=== PATIENT | female | born 1990 | race Caucasian/White ===

== ENCOUNTER 2020-01-26 18:48 | Outpatient (CLI) | payer OTHER | END 2020-01-26 18:49 | disposition EMS.NT | LOC: EMS 18:48 | PROVIDERS: ATTEND Surgery | DX: R56.9 Unspecified convulsions (principal) ==

== ENCOUNTER 2020-01-26 19:43 | Emergency (ER) | payer OTHER ==
--- NOTE | 2020-01-26 20:07 | ED Physician Documentation ---
PD HPI SEIZURE - Stated complaint Stated Complaint: POSSIBLE SZ - Chief complaint Chief Complaint: Neuro - History obtained from History obtained from: Patient - Additional information Additional information: 29-year-old woman with history of anxiety and depression presents after a seizure versus syncopal episode. She was in her usual state of health, had taken a Xanax at approximately noon. They are watching a football game, her went out to 10 to the [facility] and found her in the kitchen on her back shaking and foaming at the mouth. After a couple minutes she started to come out of it but there was a couple of minutes of what sounds like a postictal period. Now feels normal. Denies headaches or history of seizures. Uses alcohol moderately. No withdrawal symptoms. Review of Systems Ten Systems: 10 systems reviewed and negative Constitutional: reports: Reviewed and negative Nose: reports: Reviewed and negative Throat: reports: Reviewed and negative Cardiac: reports: Reviewed and negative Respiratory: reports: Reviewed and negative PD PAST MEDICAL HISTORY - Allergies Allergies/Adverse Reactions: Allergies Allergy/AdvReac Type Severity Reaction Status Date / Time No Known Drug Allergies Allergy Verified 01/26/20 19:52 PD ED PE NORMAL - Vitals Vital signs reviewed: Yes - General General: Alert and oriented X 3, No acute distress - HEENT HEENT: PERRL, EOMI - Neck Neck: Supple, no meningeal sign, No bony TTP - Cardiac Cardiac: RRR, No murmur - Respiratory Respiratory: No respiratory distress, Clear bilaterally - Abdomen Abdomen: Normal bowel sounds, Soft, Non tender - Back Back: No CVA TTP, No spinal TTP - Derm Derm: Normal color, Warm and dry - Extremities Extremities: No edema, No calf tenderness / cord - Neuro Neuro: Alert and oriented X 3, No motor deficit, No sensory deficit, Normal speech Eye Opening: Spontaneous Motor: Obeys Commands Verbal: Oriented GCS Score: 15 - Psych Psych: Normal mood, Normal affect Results - Vitals Vitals: Vital Signs - 24 hr 01/26/20 01/26/20 19:52 21:18 Temperature 36.9 C 36.8 C Heart Rate 100 85 Respiratory 16 16 Rate Blood Pressure 126/89 H 122/65 O2 Saturation 100 100 Oxygen O2 Source Room air - EKG (time done) 2010 Rate: Rate (enter#) (70) Rhythm: NSR [place]: Normal Intervals: Normal MS. No: Prolonged QT, Wide QRS QRS: Normal - Labs Labs: Laboratory Tests 01/26/20 01/26/20 01/26/20 20:16 20:16 20:16 WBC 3.6 L RBC 3.94 L Hgb 14.1 Hct 39.0 MCV 99.0 MCH 35.8 H MCHC 36.2 H RDW 11.6 L Plt Count 158 MPV 9.2 Neut # (Auto) 2.9 Lymph # (Auto) 0.3 L [place] # (Auto) 0.3 Eos # (Auto) 0.1 Baso # (Auto) 0.1 Absolute Nucleated RBC 0.00 Nucleated RBC % 0.0 Sodium 136 Potassium 3.7 Chloride 99 L Carbon Dioxide 25 Anion Gap 12.0 BUN 5 L Creatinine 0.7 Estimated GFR (MDRD) 100 Glucose 127 H Calcium 9.7 Total Bilirubin 1.4 H AST 303 H ALT 159 H Alkaline Phosphatase 102 Total Protein 7.5 Albumin 4.9 Globulin 2.6 Albumin/Globulin Ratio 1.9 Lipase 32 TSH 5.77 H Prolactin 34.85 Ethyl Alcohol < 5.0 PD MEDICAL DECISION MAKING - ED course ED course: 29-year-old woman with history sounds most consistent with a new onset seizure. Liver enzymes were concerning for some alcoholism, she really said she did not drink that much but did quit drinking hard alcohol a couple of weeks ago. This time and would not be appropriate for alcohol withdrawal seizure. Advised to decrease her alcohol use significantly either way. Prolactin level was slightly elevated which is suggestive of seizure. EKG and CT of the head were normal. Discussed need for follow-up and no driving. Departure - Departure Disposition: 01 Home, Self Care Clinical Impression: New onset seizure Condition: Good Record reviewed to determine appropriate education?: Yes Instructions: ED Seizure New Onset Unk Cause Comments: As discussed, per [place] law you cannot drive for 6 months after an episode like this until cleared by a neurologist or 6 months has passed. Also do not do other activities where if it were to be a recurrent phenomenon you would be in danger such as swimming, climbing ladders etc. You were seen today for an episode that is concerning for seizure. We did a CAT scan of your head that was normal. Blood work shows some liver and other issues that may be related to alcohol use. Try to stabilize your alcohol use at no more than 2 drinks a day. Follow-up with your doctor, let him or her know that your prolactin level was also high at 34.85 which is also somewhat suggestive that this is a seizure. Your physician may want to refer you to a neurologist. Discharge Date/Time: 01/26/20 21:19
[2020-01-26] MEDS ORDERED: ONDANSETRON 4 MG/2 ML VIAL IVP STA (20:20)
[2020-01-26 20:24] LABS: BASOPHILS # (AUTO) 0.1 10^3/uL (0.0-0.1); BASOPHILS % (AUTO) 1.7 %; EOSINOPHILS # (AUTO) 0.1 10^3/uL (0.0-0.7); EOSINOPHILS % (AUTO) 2.5 %; HGB - HEMOGLOBIN 14.1 g/dL (12.0-16.0); LYMPHOCYTES # (AUTO) 0.3 10^3/uL (1.5-3.5); LYMPHOCYTES % (AUTO) 8.6 %; MEAN CORPUSCULAR HEMOGLOBIN 35.8 pg (27.0-31.0); MEAN CORPUSCULAR HGB CONC 36.2 g/dL (32.0-36.0); MEAN PLATELET VOLUME 9.2 fL (7.9-10.8); MONOCYTES # (AUTO) 0.3 10^3/uL (0.0-1.0); MONOCYTES % (AUTO) 6.9 %; NEUTROPHILS # (AUTO) 2.9 10^3/uL (1.5-6.6); PLT - PLATELET COUNT 158 10^3/uL (130-450); RED BLOOD COUNT 3.94 10^6/uL (4.20-5.40); RED CELL DISTRIBUTION WIDTH 11.6 % (12.0-15.0); WHITE BLOOD COUNT 3.6 x10^3/uL (4.8-10.8)
[2020-01-26] MEDS ORDERED: ONDANSETRON ODT 4 MG TABLET TL STA (20:24)
[2020-01-26 20:35] LABS: ALBUMIN 4.9 g/dL (3.2-5.5); ALBUMIN/GLOBULIN RATIO 1.9 (1.0-2.2); ALKALINE PHOSPHATASE 102 IU/L (42-121); ALT ALANINE AMINOTRANSFERASE 159 IU/L (10-60); AST ASPARTATE AMINOTRANSFERASE 303 IU/L (10-42); BILIRUBIN,TOTAL 1.4 mg/dL (0.2-1.0); BUN - BLOOD UREA NITROGEN 5 mg/dL (6-20); CALCIUM 9.7 mg/dL (8.5-10.3); CARBON DIOXIDE - CO2 25 mmol/L (21-32); CHLORIDE 99 mmol/L (101-111); CREATININE 0.7 mg/dL (0.4-1.0); GLUCOSE 127 mg/dL (70-100); LIPASE 32 U/L (22-51); SODIUM 136 mmol/L (135-145); TOTAL PROTEIN 7.5 g/dL (6.7-8.2)
[2020-01-26 20:51] LABS: THYROID STIMULATING HORMONE 5.77 uIU/mL (0.34-5.60)
[2020-01-26 20:57] LABS: PROLACTIN 34.85 ng/mL
--- NOTE | 2020-01-26 21:01 | CT Report ---
PROCEDURE: HEAD WO INDICATIONS: poss seizure TECHNIQUE: Noncontrast 4.5 mm thick angled axial sections acquired from the foramen magnum to the vertex. For r adiation dose reduction, the following was used: automated exposure control, adjustment of mA and/or kV according to patient size. COMPARISON: None. FINDINGS: Image quality: Excellent. CSF spaces: Basal cisterns are patent. No extra-axial fluid collections. Ventricles are normal in size and shape. Brain: No midline shift. No intracranial masses or hemorrhage. Grimaldo-white matter interface is norm al. Skull and face: Calvarium and visualized facial bones are intact, without suspicious lesions. Sinuses: Visualized sinuses and mastoids are clear. IMPRESSION: 1. No CT evidence of acute intracranial process. Reviewed by: Sanjuana Beltran MD on 01/26/2020 9:00 PM PDT Approved by: Sanjuana Beltran MD on 01/26/2020 9:00 PM PDT Station ID: [id number]
[2020-01-26 21:19] VITALS: BP 122/65
== END 2020-01-26 21:19 | disposition home or self-care (01) ==
LOC: ED 19:43
DX: R56.9 Unspecified convulsions (principal); E03.9 Hypothyroidism, unspecified
CPT/HCPCS: 36415; 70450; 80320; 83690; 84146; 93005; 99284; Q0162; 80053; 84443; 85025

== ENCOUNTER 2020-01-26 22:51 | Outpatient (CLI) | payer OTHER | END 2020-01-26 22:52 | disposition critical access hospital (66) | LOC: EMS 22:51 | PROVIDERS: ATTEND Surgery | DX: R56.9 Unspecified convulsions (principal) | CPT/HCPCS: A0425; A0427 ==

== ENCOUNTER 2020-01-26 23:19 | Emergency (ER) | payer OTHER ==
--- NOTE | 2020-01-26 23:32 | ED Physician Documentation ---
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) Witnessed: Witnessed Number of seizures: Single ((although this is the second seizure tonight)), Lasted minutes Description of seizure activity: Generalized, Tonic clonic Injury during seizure: Fell Pain level now: 3 (generalized headache) Associated symptoms: None History of seizures: Other (second seizure tonight but no prior seizures) Contributing factors: No: EtOH withdrawal (denies), Benzo withdrawal Similar symptoms before: Has not had sx before Recently seen: Emergency Dept - Additional information Additional information: T+R from this ED few hours ago for new-onset single GTC seizure. unremarkable w/u that included blood tests and CTH, EKG. d/c without rx. Patient and s.o. were home for approximately 5 minutes when s.o. witnessed patient walking in kitchen, suddenly falling to ground and having full-body stiffening followed by rhythmic, coordinated limb jerking movements. She was unresponsive and her seizure-like activity lasted approximately 3-5 minutes followed by post-ictal phase lasting approximately 10-15 minutes (drowsy, then awake but confused (forgetting things like her dog's name), but baseline mentation by the time of ED arrival) Review of Systems Constitutional: denies: Fever, Chills, Sweats Cardiac: reports: Reviewed and negative Respiratory: reports: Reviewed and negative GI: reports: Nausea. denies: Abdominal Pain, Vomiting Musculoskeletal: reports: Reviewed and negative. denies: Neck pain, Back pain Neurologic: reports: Seizure. denies: Generalized weakness, Focal weakness, Numbness, Headache, Head injury PD PAST MEDICAL HISTORY - Past Medical History Cardiovascular: None Respiratory: None Neuro: None Endocrine/Autoimmune: HyPOthyroidism GI: None RES HABILITATION ASSISTANT: None : None HEENT: None Psych: Depression, Anxiety Musculoskeletal: None Derm: Eczema - Past Surgical History Past Surgical History: Yes Ortho: Other - Present Medications Home Medications: Ambulatory Orders Medication Instructions Recorded Confirmed ALPRAZolam [Alprazolam] 0.25 mg PO DAILY 01/27/20 01/27/20 Levothyroxine [Synthroid] 100 mcg PO QDAC 01/27/20 01/27/20 buPROPion [Wellbutrin Sr] 100 mg PO DAILY 01/27/20 01/27/20 levETIRAcetam [Levetiracetam] 750 mg PO BID #30 tablet 01/27/20 - Allergies Allergies/Adverse Reactions: Allergies Allergy/AdvReac Type Severity Reaction Status Date / Time No Known Drug Allergies Allergy Verified 01/26/20 19:52 - Social History Does the pt smoke?: No Smoking Status: Never smoker Does the pt drink ETOH?: Yes Does the pt have substance abuse?: No - Immunizations Immunizations are current?: No - POLST Patient has POLST: No PD ED PE NORMAL - Vitals Vital signs reviewed: Yes - General General: Alert and oriented X 3, No acute distress, Well developed/nourished - HEENT HEENT: Atraumatic, PERRL, EOMI, Other (abrasion to lateral aspects of tongue c/w mild tongue bite, no laceration) - Neck Neck: Supple, no meningeal sign, No bony TTP - Cardiac Cardiac: RRR, No murmur - Respiratory Respiratory: No respiratory distress, Clear bilaterally - Abdomen Abdomen: Soft, Non tender, Non distended - Derm Derm: Normal color, Warm and dry - Neuro Neuro: Alert and oriented X 3, 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, No motor deficit, No sensory deficit, Normal speech Eye Opening: Spontaneous Motor: Obeys Commands Verbal: Oriented GCS Score: 15 - Psych Psych: Normal mood, Normal affect Results - Vitals Vitals: Vital Signs - 24 hr 01/26/20 01/27/20 01/27/20 23:20 00:30 01:43 Temperature 36.9 C 36.9 C Heart Rate 76 66 82 Respiratory 18 19 19 Rate Blood Pressure 146/114 H 134/92 H 113/92 H O2 Saturation 100 99 99 Oxygen O2 Source Room air PD MEDICAL DECISION MAKING - ED course Complexity details: reviewed old records, reviewed results, re-evaluated patient, considered differential, d/w patient ED course: Patient had w/u few hours ago including EKG, CTH, and blood tests and thus no repeat testing at this time. We discussed alcohol withdrawal seizures, but she says she is neither a heavy nor regular drinker. She is calm and without any tremulousness during ED stay. D/W Dr. Evans (neurology service operations manager at [facility]), recommends 1,000mg IV levetira cetam and rx for 750mg levetiracetam BID. He also recommends cessation of the buproprion. I discussed these recommendations with patient and stressed the need for f/u as well as restrictions related to seizure precautions (such as no driving until cleared by PMD or neurology). Departure - Departure Disposition: 01 Home, Self Care Clinical Impression: New onset seizure Condition: Good Instructions: ED Seizure New Onset Unk Cause Follow-Up: [facility] [Provider Group] Prescriptions: levETIRAcetam [Levetiracetam] 750 mg PO BID #30 tablet Comments: It is very important that you follow up for reevaluation, ideally by a neurologist. Depending on your insurance provider, you might need to first see your primary care provider. Do not drive any vehicle until you are cleared to do so by either your primary care provider or a neurologist. If you were to have a seizure while driving, the consequences could be fatal for you, other occupants of the vehicle, and others in the vicinity. I discussed your case with a neurologist at [facility] (Dr. Evans), and the prescribed medication is per his recommendation. He recommends that you stop the wellbutrin (buproprion), as this can cause seizures. Your primary care provider might recommend a taper, and they might prescribe a different medication for your symptoms that does not lower the seizure thresh hold (make it easier to seize). As we discussed, your liver function tests were abnormal, and your primary care provider might perform further tests regarding these results. One option for follow up is to call the [facility] to arrange for follow up, but you should confirm with your primary care provider's office or your insurance provider that such a visit would be covered. Otherwise, obtain a neurology referral through your primary care provider or insurance provider. The number for the [facility] is . Discharge Date/Time: 01/27/20 01:48
[2020-01-26] MEDS ORDERED: SODIUM CHLORIDE 0.9% 1,000 ML IV STA (23:46)
[2020-01-27] MEDS ORDERED: levETIRAcetam INJ 1,000 MG in SODIUM CHLORIDE 0.9% 100ML 100 ML IV STA (00:54)
[2020-01-27 01:48] VITALS: BP 113/92
== END 2020-01-27 01:48 | disposition home or self-care (01) ==
LOC: EDUNIT# → ED 23:19
DX: R56.9 Unspecified convulsions (principal); E03.9 Hypothyroidism, unspecified
CPT/HCPCS: 96365